=== PATIENT | female | born 1940 ===

== ENCOUNTER 2017-06-14 09:23 | Emergency (ER) | payer MEDICARE, OTHER ==
[2017-06-14 09:32] VITALS: BMI 25.8
[2017-06-14 09:33] VITALS: BP 159/75; PULSE 80; RESP 16; TEMP 98; O2SAT 98
--- NOTE | 2017-06-14 11:44 | C.PDOC ---
History Of Present Illness 77 yr old female with PMHx of arthritis, presents to the ER with complaints of right knee pain for the past 1 week. Patient reports she was seen by the arthritis doctor yesterday who prescribed a cream but reports no relief after 2 applications. Patient states she has a follow up appointment with the doctor again next week. Denies recent trauma, fever, leg pain, foot pain, back pain, weakness or numbness. Time Seen by Provider: 06/14/17 09:51 Chief Complaint (Nursing): Lower Extremity Problem/Injury History Per: Patient History/Exam Limitations: no limitations Onset/Duration Of Symptoms: Persistent (1 week) Current Symptoms Are (Timing): Still Present Past Medical History Reviewed: Historical Data, Nursing Documentation, Vital Signs Vital Signs: Last Vital Signs Temp 98.0 F 06/14/17 09:32 Pulse 80 06/14/17 09:32 Resp 16 06/14/17 09:32 BP 159/75 H 06/14/17 09:32 Pulse Ox 98 06/14/17 11:46 - Medical History PMH: HTN, Hypothyroidism Family History: States: No Known Family Hx - Social History Hx Alcohol Use: No Hx Substance Use: No - Immunization History Hx Tetanus Toxoid Vaccination: No Hx Influenza Vaccination: No Hx Pneumococcal Vaccination: No Review Of Systems Except As Marked, All Systems Reviewed And Found Negative. Constitutional: Negative for: Fever Musculoskeletal: Positive for: Other ((+) Right knee pain ). Negative for: Back Pain, Leg Pain, Foot Pain Neurological: Negative for: Weakness, Numbness Physical Exam - Physical Exam Appears: Non-toxic, No Acute Distress Skin: Warm, Dry, No Rash Head: Atraumatic, Normacephalic Oral Mucosa: Moist Extremity: Normal ROM, No Calf Tenderness, Capillary Refill (<2), Other ((+) Right Knee - Chronic arthritis changes. Crepitus. ) Pulses: Left Dorsalis Pedis: Normal, Right Dorsalis Pedis: Normal Neurological/Psych: Oriented x3, Normal Speech, Normal Motor ED Course And Treatment O2 Sat by Pulse Oximetry: 98 (RA ) Pulse Ox Interpretation: Normal Medical Decision Making Medical Decision Making: PLAN: * Motrin PO Disposition - Disposition Referrals: [facility] Francesca Crabtree, [Non-Staff] - Disposition: HOME/ ROUTINE Disposition Time: 10:00 Condition: GOOD Additional Instructions: Thank you for letting us take care of you today. Your provider was Dr. Carmichael. You were treated for chronic arthritis. The emergency medical care you received today was directed at your acute symptoms. If you were prescribed any medication, please fill it and take as directed. It may take several days for your symptoms to resolve. Return to the Emergency Department if your symptoms worsen, do not improve, or if you have any other problems. Please contact your doctor or call one of the physicians/clinics you have been referred to that are listed on the Patient Visit Information form that is included in your discharge packet. Bring any paperwork you were given at discharge with you along with any medications you are taking to your follow up visit. Our treatment cannot replace ongoing medical care by a primary care provider (PCP) outside of the emergency department. Thank you for allowing the [facility] team to be part of your care today. Follow up with your arthritis doctor as scheduled for follow up. Prescriptions: Ibuprofen [Motrin] 600 mg PO Q6 PRN #20 tab PRN Reason: Pain, Moderate (4-7) Instructions: Osteoarthritis (ED) Forms: Gen Discharge Inst Welsh, [employer] (Belarusian) Print Language: OMANI - Clinical Impression Clinical Impression: Arthritis - Scribe Statement The provider has reviewed the documentation as recorded by the Ana Cristinaibmanpreet Heller Provider Attestation: All medical record entries made by the Ana Cristinaibmanpreet were at my direction and personally dictated by me. I have reviewed the chart and agree that the record accurately reflects my personal performance of the history, physical exam, medical decision making, and the department course for this patient. I have also personally directed, reviewed, and agree with the discharge instructions and disposition.
== END 2017-06-14 10:07 | disposition home or self-care (01) ==
LOC: C.ER 09:23
DX: M17.11 Unilateral primary osteoarthritis, right knee (principal)

== ENCOUNTER 2017-07-16 14:03 | Emergency (ER) | payer MEDICARE, OTHER ==
[2017-07-16 14:04] VITALS: BMI 25.8
[2017-07-16 14:13] VITALS: RESP 18
[2017-07-16] MEDS ORDERED: Aspirin 325 mg EC Tablets PO STA (15:01)
[2017-07-16 15:21] LABS: BASO % 0.5 % (0.0-2.0); EOS % 0.6 % (0.0-4.0); HEMATOCRIT 36.8 % (34.0-47.0); LYMPH # 1.4 K/uL (1.0-4.3); LYMPH % 17.6 % (20.0-40.0); MEAN CELL VOLUME 81.5 fL (81.0-99.0); MEAN CORPUSCULAR HEMOGLOBIN 26.5 pg (27.0-31.0); MEAN CORPUSCULAR HGB CONC 32.5 g/dL (33.0-37.0); MEAN PLATELET VOLUME 11.3 fL (7.2-11.7); MONO # 0.3 K/uL (0.0-0.8); MONO % 3.2 % (0.0-10.0); RED CELL DISTRIBUTION WIDTH 14.3 % (11.5-14.5)
[2017-07-16] MEDS ORDERED: Aspirin 325 mg EC Tablets PO ONE (15:21)
[2017-07-16 15:32] LABS: CHLORIDE 96 mmol/L (98-107); SODIUM 135 mmol/L (132-148)
[2017-07-16 15:33] LABS: POTASSIUM 3.9 mmol/L (3.6-5.2)
[2017-07-16 15:35] LABS: ALB/GLOB RATIO 1.3 (1.0-2.1); ALKALINE PHOSPHATASE 133 U/L (38-126); ALT/SGPT 38 U/L (9-52); AST/SGOT 34 U/L (14-36); BILIRUBIN,TOTAL 0.7 mg/dL (0.2-1.3); BLOOD UREA NITROGEN 37 mg/dL (7-17); CARBON DIOXIDE 24 mmol/L (22-30); GFR AFRICAN-AMERICAN > 60; GLUCOSE,RANDOM 335 mg/dL (65-105); TOTAL PROTEIN 7.8 g/dL (6.3-8.3)
--- NOTE | 2017-07-16 15:54 | RAD ---
HISTORY: SOB COMPARISON: Chest x-ray performed 03/01/13 TECHNIQUE: Chest PA and lateral FINDINGS: LUNGS: No focal consolidation. Please note that chest x-ray has limited sensitivity for the detection of pulmonary masses. PLEURA: No significant pleural effusion identified. No definite pneumothorax . CARDIOVASCULAR: The cardiomediastinal silhouette appears within normal limits of size. OSSEOUS STRUCTURES: No acute osseous abnormality identified. VISUALIZED UPPER ABDOMEN: Right upper quadrant surgical clips. OTHER FINDINGS: None. IMPRESSION: No focal consolidation, significant pleural effusion, or definite pneumothorax identified.
--- NOTE | 2017-07-16 16:36 | C.PDOC ---
History Of Present Illness 77 y/o female c/o vague chest discomfort for 2 days. Patient reports pain is worse when standing at the kitchen sink or cooking. She notes pain is not digitally or positionally reproducible. Denies fever, chills, rash, palpitations , shortness of breath, nausea, vomiting, diarrhea, or other associated symptoms. Time Seen by Provider: 07/16/17 14:28 Chief Complaint (Nursing): Chest Pain History Per: Patient History/Exam Limitations: no limitations Onset/Duration Of Symptoms: Days Current Symptoms Are (Timing): Still Present Recent travel outside of the [place]: No Past Medical History Reviewed: Historical Data, Nursing Documentation, Vital Signs Vital Signs: Last Vital Signs Temp 98 F 07/16/17 17:03 Pulse 92 H 07/16/17 17:03 Resp 18 07/16/17 17:03 BP 127/70 07/16/17 17:03 Pulse Ox 97 07/16/17 17:03 - Medical History PMH: HTN, Hypothyroidism Family History: States: Unknown Family Hx - Social History Hx Alcohol Use: No Hx Substance Use: No - Immunization History Hx Tetanus Toxoid Vaccination: No Hx Influenza Vaccination: No Hx Pneumococcal Vaccination: No Review Of Systems Except As Marked, All Systems Reviewed And Found Negative. Constitutional: Negative for: Fever, Chills Respiratory: Negative for: Cough, Shortness of Breath, Wheezing Gastrointestinal: Negative for: Nausea, Vomiting, Abdominal Pain Musculoskeletal: Positive for: Other (chest wall pain) Skin: Negative for: Rash Neurological: Negative for: Headache, Dizziness Physical Exam - Physical Exam Appears: Non-toxic, No Acute Distress Skin: Normal Color, Warm, Dry, No Rash Head: Atraumatic, Normacephalic Oral Mucosa: Moist Chest: Symmetrical, No Tenderness (no digitally reproducible pain ) Cardiovascular: Rhythm Regular Respiratory: Normal Breath Sounds, No Accessory Muscle Use, No Rales, No Rhonchi , No Wheezing Gastrointestinal/Abdominal: Soft, No Tenderness, No Guarding, No Rebound Back: Normal Inspection Extremity: Normal ROM, Capillary Refill (< 2 sec.) Neurological/Psych: Oriented x3, Normal Speech, Normal Cognition ED Course And Treatment - Laboratory Results Result Diagrams: 07/16/17 15:17 07/16/17 15:17 Lab Interpretation: Abnormal (UA 144 WBC's) ECG: Interpreted By Me ECG Rhythm: Sinus Tachycardia ECG Interpretation: Abnormal Rate From EC O2 Sat by Pulse Oximetry: 98 (RA) Pulse Ox Interpretation: Normal - Radiology CXR: Interpreted by Me CXR Interpretation: Yes: No Acute Disease Progress Note: EKG, CxR, aspirin 325 PO, labs ordered. macrobid PO Reevaluation Time: 17:17 Reassessment Condition: Improved Medical Decision Making Medical Decision Making: w/u neg for cardiac issues vague discomforts probably from UTI, macrobid started. Disposition Doctor Will See Patient In The: Office Counseled Patient/Family Regarding: Studies Performed, Diagnosis - Disposition Disposition: HOME/ ROUTINE Disposition Time: 17:20 Condition: GOOD Forms: [facility] (Albanian) - Clinical Impression Clinical Impression: Chest discomfort, UTI (urinary tract infection) - Scribe Statement The provider has reviewed the documentation as recorded by the Scribe Raymond Sutton All medical record entries made by the Scribe were at my direction and personally dictated by me. I have reviewed the chart and agree that the record accurately reflects my personal performance of the history, physical exam, medical decision making, and the department course for this patient. I have also personally directed, reviewed, and agree with the discharge instructions and disposition.
[2017-07-16] MEDS ORDERED: (Novolin R) Insulin Human Regular 100 units/ml vial IV STA (16:45)
[2017-07-16 16:53] LABS: RBC URINE 62 /hpf (0-3); TRANSITIONAL EPITHIAL 1 /hpf (0-3); URINE BACTERIA MANY (<OCC); URINE BILIRUBIN NEGATIVE (NEGATIVE); URINE COLOR Amber (YELLOW); URINE GLUCOSE (UA) 3+ mg/dL (Normal); URINE KETONE NEGATIVE (NEGATIVE); URINE LEUKOCYTE ESTERASE 3+ Leu/uL (Negative); URINE PROTEIN NEGATIVE (NEGATIVE); URINE UROBILINOGEN NORMAL mg/dL (0.2-1.0); WBC URINE 144 /hpf (0-5)
[2017-07-16 16:54] LABS: URINE BLOOD 3+ (NEGATIVE)
[2017-07-16] MEDS ORDERED: (Novolin R) Insulin Human Regular 100 units/ml vial ONE (16:57)
[2017-07-16 17:04] VITALS: BP 127/70; PULSE 92; TEMP 98
[2017-07-16 17:19] VITALS: O2SAT 98
--- NOTE | 2017-07-18 18:19 | CARD ---
APPROVED REPORT EKG Measurement Heart [id number] <Conclusion> Sinus tachycardia with occasional premature ventricular complexes Left ventricular hypertrophy with repolarization abnormality Abnormal ECG
== END 2017-07-16 17:40 | disposition home or self-care (01) ==
LOC: C.ER 14:03
DX: R07.89 Other chest pain (principal); N39.0 Urinary tract infection, site not specified

== ENCOUNTER 2018-12-17 15:32 | Observation (INO) | payer MEDICARE, OTHER ==
[2018-12-17 15:32] VITALS: BMI 25.8
--- NOTE | 2018-12-17 16:05 | C.PDOC ---
History Of Present Illness 78 y/o female, w/PMhx of IDDM, presents to ER with family for evaluation of weakness and lightheadedness which has been present for the past few days. Family states that they found her on the floor yesterday. Patient states that she did not pass out. Patient reports that her blood sugar was 46 at the time. She notes that she takes her oral and insulin medications as prescribed. She states that her blood sugar levels are usually around 125. Currently, patient denies having dizziness, CP, SOB, palpitations, fever, chills, bowel/ bladder incontinence, dysuria, and hematuria. Time Seen by Provider: 12/17/18 15:46 Chief Complaint (Nursing): Dizziness/Lightheaded History Per: Patient History/Exam Limitations: no limitations Onset/Duration Of Symptoms: Days Current Symptoms Are (Timing): Still Present Severity: Moderate Past Medical History Reviewed: Historical Data, Nursing Documentation, Vital Signs Vital Signs: Last Vital Signs Temp 98.7 F 12/17/18 15:37 Pulse 88 12/17/18 15:37 Resp 18 12/17/18 15:37 BP 178/73 H 12/17/18 15:37 Pulse Ox 98 12/17/18 15:37 - Medical History PMH: Arthritis, Diabetes, HTN, Hypothyroidism Other Surgeries: Hx of surgeries Family History: States: No Known Family Hx - Social History Hx Alcohol Use: No Hx Substance Use: No - Immunization History Hx Tetanus Toxoid Vaccination: No Hx Influenza Vaccination: No Hx Pneumococcal Vaccination: No Review Of Systems Constitutional: Positive for: Weakness. Negative for: Fever, Chills Cardiovascular: Negative for: Chest Pain, Palpitations Respiratory: Negative for: Shortness of Breath Gastrointestinal: Negative for: Nausea, Vomiting Genitourinary: Negative for: Dysuria, Incontinence, Hematuria Neurological: Negative for: Headache, Dizziness Physical Exam - Physical Exam Appears: Non-toxic, No Acute Distress Skin: Normal Color, Warm, Dry Head: Atraumatic, Normacephalic Eye(s): bilateral: Normal Inspection, PERRL, EOMI Nose: Normal Oral Mucosa: Moist Neck: Supple Chest: Symmetrical Cardiovascular: Rhythm Regular Respiratory: Normal Breath Sounds, No Rales, No Rhonchi, No Wheezing Gastrointestinal/Abdominal: Normal Exam, Soft, No Tenderness, No Guarding, No Rebound Neurological/Psych: Oriented x3, Normal Speech ED Course And Treatment - Laboratory Results Result Diagrams: 12/17/18 16:20 12/17/18 16:20 Lab Interpretation: Abnormal (Low glucose) ECG: Interpreted By Me ECG Rhythm: Sinus Rhythm ECG Interpretation: Normal O2 Sat by Pulse Oximetry: 98 (RA) Pulse Ox Interpretation: Normal Reevaluation Time: 19:08 Reassessment Condition: Unchanged (Glucose remains low despite being given food and juice.) - Physician Consult Information Time Consulting Physician Contacted: 19:08 Physician Contacted: Jordin Jackson Outcome Of Conversation: He knows the patient well and will admit for glucose management. Medical Decision Making Medical Decision Making: Plan: --Labs --UA --ECG --Glucose,POC Updates: Patient's blood sugar level is 55 in the ER. Disposition - Disposition Disposition: HOSPITALIZED Disposition Time: 19:09 Condition: FAIR - POA Present On Arrival: Poor Glycemic Control - Clinical Impression Clinical Impression: Hypoglycemia associated with diabetes - Scribe Statement The provider has reviewed the documentation as recorded by the Tami Conroy Provider Attestation: All medical record entries made by the Tami were at my direction and personally dictated by me. I have reviewed the chart and agree that the record accurately reflects my personal performance of the history, physical exam, medical decision making, and the department course for this patient. I have also personally directed, reviewed, and agree with the discharge instructions and disposition.
[2018-12-17 16:24] LABS: BASO % 0.4 % (0.0-2.0); EOS # 0.1 K/uL (0.0-0.7); EOS % 1.1 % (0.0-4.0); HEMOGLOBIN 10.9 g/dL (11.0-16.0); LYMPH # 1.2 K/uL (1.0-4.3); LYMPH % 15.2 % (20.0-40.0); MEAN CELL VOLUME 81.9 fL (81.0-99.0); MEAN CORPUSCULAR HEMOGLOBIN 25.7 pg (27.0-31.0); MEAN CORPUSCULAR HGB CONC 31.3 g/dL (33.0-37.0); MEAN PLATELET VOLUME 9.3 fL (7.2-11.7); MONO # 0.4 K/uL (0.0-0.8); MONO % 5.7 % (0.0-10.0); NEUT % 77.6 % (50.0-75.0); RBC 4.23 Mil/uL (3.80-5.20); RED CELL DISTRIBUTION WIDTH 15.8 % (11.5-14.5); WHITE BLOOD COUNT 7.7 K/uL (4.8-10.8)
[2018-12-17 16:35] LABS: ALB/GLOB RATIO 1.2 (1.0-2.1); ALBUMIN 4.3 g/dL (3.5-5.0); ALT/SGPT 10 U/L (9-52); AST/SGOT 26 U/L (14-36); BLOOD UREA NITROGEN 15 mg/dL (7-17); CALCIUM 9.4 mg/dl (8.6-10.4); GFR NON-AFRICAN AMERICAN > 60
[2018-12-17 18:08] LABS: SQUAMOUS EPITHIAL 25 /hpf (0-5); URINE BACTERIA MOD (<OCC); URINE BILIRUBIN NEGATIVE (NEGATIVE); URINE BLOOD NEGATIVE (NEGATIVE); URINE CLARITY Hazy (Clear); URINE COLOR Yellow (YELLOW); URINE GLUCOSE (UA) NORMAL (Normal); URINE LEUKOCYTE ESTERASE 3+ Leu/uL (Negative); URINE PROTEIN NEGATIVE (NEGATIVE); URINE UROBILINOGEN NORMAL mg/dL (0.2-1.0)
[2018-12-17] MEDS ORDERED: Dextrose 50% SYRINGE Inj (50 ml) IV STA (19:10)
[2018-12-17] MEDS ORDERED: Dextrose 50% SYRINGE Inj (50 ml) ONE (19:20)
--- NOTE | 2018-12-17 22:13 | CP.PCM.HP ---
History of Present Illness - History of Present Illness History of Present Illness: Patient now having some control of his had . Came to the office to get a refill of the her medications. Also she ran out of the insulin needles. Patient is taking insulin both Lantus, and Humalog. Also being seen by qa tech. She scheduled to see in 2 months. Patient now having increasing lower back pain. Also complaining of pain radiating to the front of the Abdomen. No chest pain noted. Blood sugar is still on the high side. Recent blood test is showing hemoglobin A1 C9.2. No chest pain or shortness of breath. History: 76-year-old female with history of diabetes, hypertension, hypercholesteremia came to the office for a routine visit. On examination: HEENT PERRLA, neck supple No thyromegaly was noted and no cervical adenopathy noted Chest bilateral good air entry, no wheezing or rales noted CVS regular heart sound, no murmur Abdomen soft and no organomegaly Extremities no pedal edema, no leg swelling, pedal pulses are good. SUPPORT WORKER alert awake oriented x3 no functional neurological deficit. Lumbosacral spine x-ray reviewed Knee x-rays reviewed Changes of osteoarthritis noted. B-12 1,000 MCG TABLET Start: Nov 26, 2018 End: Feb 23, 2019 FOLIC ACID 1 MG TABLET Start: Nov 26, 2018 End: May 22, 2019 LOSARTAN-HYDROCHLOROTHIAZIDE 50-12.5 MG TAB Start: Aug 26, 2018 End: May 22, 2019 GLIMEPIRIDE 4 MG TABLET Start: Aug 26, 2018 End: May 22, 2019 HUMALOG MIX 75-25 KWIKPEN Start: Oct 15, 2018 End: Jul 11, 2019 DICLOFENAC SODIUM 3% GEL Start: March 12, 2018 End: Dec 06, 2018 PROMETHAZINE VC SYRUP PEN NEEDLE 6MM 31G Start: Nov 26, 2018 End: March 25, 2019 EQL 33G LANCETS Start: Oct 15, 2018 End: Feb 11, 2019 ACCU-CHEK RAVI TEST STRIPS Start: Oct 15, 2018 End: March 13, 2019 SYNTHROID 25 MCG TABLET Start: Aug 26, 2018 End: May 22, 2019 Assessment and recommendation: 76-year-old female with history of diabetes, hypertension, hypercholesteremia came to the office of the right foot pain. Uncontrolled diabetes. I advised the homemaker and the patient that she should increase the insulin to 25 units Lantus at night. Humalog 25 in the morning 25 in the evening. I advised her to continue current medications. Patient will do the repeat blood test today. Followup in 6 weeks Past Patient History - Past Social History Smoking Status: Never Smoked - CARDIAC Hx Hypertension: Yes - ENDOCRINE/METABOLIC Hx Hypothyroidism: Yes - MUSCULOSKELETAL/RHEUMATOLOGICAL Hx Arthritis: Yes - PSYCHIATRIC Hx Substance Use: No - SURGICAL HISTORY Hx Surgeries: Yes Other/Comment: Lithotrypsy - ANESTHESIA Hx Anesthesia: No Hx Anesthesia Reactions: No Meds Allergies/Adverse Reactions: Allergies Allergy/AdvReac Type Severity Reaction Status Date / Time No Known Allergies Allergy Verified 07/16/17 14:19 Results - Vital Signs Recent Vital Signs: Last Vital Signs Temp 98.7 F 12/17/18 15:37 Pulse 79 12/17/18 19:28 Resp 20 12/17/18 19:28 BP 130/65 12/17/18 19:28 Pulse Ox 96 12/17/18 19:28 - Labs Result Diagrams: 12/19/18 07:00 12/19/18 07:00 Labs: Laboratory Results - last 24 hr 12/17/18 12/17/18 12/17/18 15:36 16:15 16:18 WBC RBC Hgb Hct MCV MCH MCHC RDW Plt Count MPV Neut % (Auto) Lymph % (Auto) Bledsoe % (Auto) Eos % (Auto) Baso % (Auto) Neut # (Auto) Lymph # (Auto) Bledsoe # (Auto) Eos # (Auto) Baso # (Auto) Sodium Potassium Chloride Carbon Dioxide Anion Gap BUN Creatinine Est GFR ( Amer) Est GFR (Non-Af Amer) POC Glucose (mg/dL) 65 56 L 55 L Random Glucose Calcium Total Bilirubin AST ALT Alkaline Phosphatase Total Protein Albumin Globulin Albumin/Globulin Ratio Urine Color Urine Clarity Urine pH Ur Specific [place] Urine Protein Urine Glucose (UA) Urine Ketones Urine Blood Urine Nitrate Urine Bilirubin Urine Urobilinogen Ur Leukocyte Esterase Urine WBC (Auto) Urine RBC (Auto) Ur Squamous Epith Cells Urine Bacteria 12/17/18 12/17/18 12/17/18 16:20 16:20 17:50 WBC 7.7 RBC 4.23 Hgb 10.9 L Hct 34.6 MCV 81.9 MCH 25.7 L MCHC 31.3 L RDW 15.8 H Plt Count 236 MPV 9.3 Neut % (Auto) 77.6 H Lymph % (Auto) 15.2 L Bledsoe % (Auto) 5.7 Eos % (Auto) 1.1 Baso % (Auto) 0.4 Neut # (Auto) 6.0 Lymph # (Auto) 1.2 Bledsoe # (Auto) 0.4 Eos # (Auto) 0.1 Baso # (Auto) 0.0 Sodium 139 Potassium 3.9 Chloride 104 Carbon Dioxide 27 Anion Gap 12 BUN 15 Creatinine 0.7 Est GFR ( Amer) > 60 Est GFR (Non-Af Amer) > 60 POC Glucose (mg/dL) Random Glucose 64 L D Calcium 9.4 Total Bilirubin 0.4 AST 26 ALT 10 Alkaline Phosphatase 93 Total Protein 7.7 Albumin 4.3 Globulin 3.5 Albumin/Globulin Ratio 1.2 Urine Color Yellow Urine Clarity Hazy Urine pH 5.0 Ur Specific [place] 1.012 Urine Protein Negative Urine Glucose (UA) Normal Urine Ketones Negative Urine Blood Negative Urine Nitrate Negative Urine Bilirubin Negative Urine Urobilinogen Normal Ur Leukocyte Esterase 3+ H Urine WBC (Auto) 15 H Urine RBC (Auto) 4 H Ur Squamous Epith Cells 25 H Urine Bacteria Mod H 12/17/18 12/17/18 12/17/18 19:00 19:02 19:48 WBC RBC Hgb Hct MCV MCH MCHC RDW Plt Count MPV Neut % (Auto) Lymph % (Auto) Bledsoe % (Auto) Eos % (Auto) Baso % (Auto) Neut # (Auto) Lymph # (Auto) Bledsoe # (Auto) Eos # (Auto) Baso # (Auto) Sodium Potassium Chloride Carbon Dioxide Anion Gap BUN Creatinine Est GFR ( Amer) Est GFR (Non-Af Amer) POC Glucose (mg/dL) 40 L 36 L* 239 H Random Glucose Calcium Total Bilirubin AST ALT Alkaline Phosphatase Total Protein Albumin Globulin Albumin/Globulin Ratio Urine Color Urine Clarity Urine pH Ur Specific [place] Urine Protein Urine Glucose (UA) Urine Ketones Urine Blood Urine Nitrate Urine Bilirubin Urine Urobilinogen Ur Leukocyte Esterase Urine WBC (Auto) Urine RBC (Auto) Ur Squamous Epith Cells Urine Bacteria
[2018-12-18 01:55] VITALS: RESP 20
[2018-12-18] MEDS: Levothyroxine 50 MCG TAB PO SCH (06:22)
[2018-12-18] MEDS ORDERED: Dextrose 5%/0.45% NS 1,000 ML IV SCH (11:15)
--- NOTE | 2018-12-18 12:21 | CARD ---
APPROVED REPORT Date of service: 12/17/2018 EKG Measurement Heart [id number] <Conclusion> Normal sinus rhythm Normal ECG
[2018-12-19] MEDS: Levothyroxine 50 MCG TAB PO SCH (06:37)
[2018-12-19 07:15] LABS: BASO % 0.6 % (0.0-2.0); EOS # 0.2 K/uL (0.0-0.7); HEMOGLOBIN 10.4 g/dL (11.0-16.0); LYMPH # 1.7 K/uL (1.0-4.3); LYMPH % 24.9 % (20.0-40.0); MEAN CELL VOLUME 80.9 fL (81.0-99.0); MEAN CORPUSCULAR HEMOGLOBIN 26.2 pg (27.0-31.0); MEAN CORPUSCULAR HGB CONC 32.4 g/dL (33.0-37.0); MEAN PLATELET VOLUME 9.7 fL (7.2-11.7); MONO # 0.5 K/uL (0.0-0.8); MONO % 7.2 % (0.0-10.0); NEUT # 4.4 K/uL (1.8-7.0); NEUT % 64.3 % (50.0-75.0); NRBC % 0.1 % (0.0-2.0); RBC 3.97 Mil/uL (3.80-5.20); RED CELL DISTRIBUTION WIDTH 15.7 % (11.5-14.5); WHITE BLOOD COUNT 6.9 K/uL (4.8-10.8)
[2018-12-19 07:39] LABS: ALB/GLOB RATIO 1.2 (1.0-2.1); ALBUMIN 3.6 g/dL (3.5-5.0); ALT/SGPT 10 U/L (9-52); AST/SGOT 18 U/L (14-36); BLOOD UREA NITROGEN 12 mg/dL (7-17); CALCIUM 9.1 mg/dl (8.6-10.4); GFR NON-AFRICAN AMERICAN > 60; HDL CHOLESTEROL 36 mg/dL (30-70)
[2018-12-19 07:49] LABS: LDL CHOLESTEROL 84 mg/dL (0-129)
--- NOTE | 2018-12-19 08:48 | CP.PCM.DIS ---
Provider - Provider Date of Admission: 12/17/18 19:06 Attending physician: Jordin Jackson MD Hospital Course - Lab Results Lab Results: Micro Results 12/17/18 19:26 Urine,Clean Catch Urine Culture - Final 10-50,000 CFU/ML. MULTIPLE SPECIES. PROBABLE CONTAMINATION. Most Recent Lab Values WBC 6.9 K/uL (4.8-10.8) 12/19/18 07:00 RBC 3.97 Mil/uL (3.80-5.20) 12/19/18 07:00 Hgb 10.4 g/dL (11.0-16.0) L 12/19/18 07:00 Hct 32.1 % (34.0-47.0) L 12/19/18 07:00 MCV 80.9 fL (81.0-99.0) L 12/19/18 07:00 MCH 26.2 pg (27.0-31.0) L 12/19/18 07:00 MCHC 32.4 g/dL (33.0-37.0) L 12/19/18 07:00 RDW 15.7 % (11.5-14.5) H 12/19/18 07:00 Plt Count 234 K/uL (130-400) 12/19/18 07:00 MPV 9.7 fL (7.2-11.7) 12/19/18 07:00 Neut % (Auto) 64.3 % (50.0-75.0) 12/19/18 07:00 Lymph % (Auto) 24.9 % (20.0-40.0) 12/19/18 07:00 Tucker % (Auto) 7.2 % (0.0-10.0) 12/19/18 07:00 Eos % (Auto) 3.0 % (0.0-4.0) 12/19/18 07:00 Baso % (Auto) 0.6 % (0.0-2.0) 12/19/18 07:00 Neut # (Auto) 4.4 K/uL (1.8-7.0) 12/19/18 07:00 Lymph # (Auto) 1.7 K/uL (1.0-4.3) 12/19/18 07:00 Tucker # (Auto) 0.5 K/uL (0.0-0.8) 12/19/18 07:00 Eos # (Auto) 0.2 K/uL (0.0-0.7) 12/19/18 07:00 Baso # (Auto) 0.0 K/uL (0.0-0.2) 12/19/18 07:00 Sodium 140 mmol/L (132-148) 12/19/18 07:00 Potassium 4.3 mmol/L (3.6-5.2) 12/19/18 07:00 Chloride 106 mmol/L (98-107) 12/19/18 07:00 Carbon Dioxide 29 mmol/L (22-30) 12/19/18 07:00 Anion Gap 10 (10-20) 12/19/18 07:00 BUN 12 mg/dL (7-17) 12/19/18 07:00 Creatinine 0.7 mg/dL (0.7-1.2) 12/19/18 07:00 Est GFR ( Amer) > 60 12/19/18 07:00 Est GFR (Non-Af Amer) > 60 12/19/18 07:00 POC Glucose (mg/dL) 140 mg/dL (65-110) H 12/19/18 07:26 Random Glucose 129 mg/dL (65-105) H D 12/19/18 07:00 Hemoglobin A1c 7.2 % (4.2-6.5) H 12/19/18 07:00 Calcium 9.1 mg/dl (8.6-10.4) 12/19/18 07:00 Phosphorus 2.9 mg/dL (2.5-4.5) 12/19/18 07:00 Magnesium 1.8 mg/dL (1.6-2.3) 12/19/18 07:00 Total Bilirubin 0.4 mg/dL (0.2-1.3) 12/19/18 07:00 AST 18 U/L (14-36) 12/19/18 07:00 ALT 10 U/L (9-52) 12/19/18 07:00 Alkaline Phosphatase 80 U/L (38-126) 12/19/18 07:00 Total Protein 6.6 g/dL (6.3-8.3) 12/19/18 07:00 Albumin 3.6 g/dL (3.5-5.0) 12/19/18 07:00 Globulin 3.0 gm/dL (2.2-3.9) 12/19/18 07:00 Albumin/Globulin Ratio 1.2 (1.0-2.1) 12/19/18 07:00 Triglycerides 135 mg/dL (0-149) 12/19/18 07:00 Cholesterol 144 mg/dL (0-199) 12/19/18 07:00 LDL Cholesterol Direct 84 mg/dL (0-129) 12/19/18 07:00 HDL Cholesterol 36 mg/dL (30-70) 12/19/18 07:00 TSH 3rd Generation 2.61 mIU/L (0.46-4.68) 12/19/18 07:00 Urine Color Yellow (YELLOW) 12/17/18 17:50 Urine Clarity Hazy (Clear) 12/17/18 17:50 Urine pH 5.0 (5.0-8.0) 12/17/18 17:50 Ur Specific [place] 1.012 (1.003-1.030) 12/17/18 17:50 Urine Protein Negative mg/dL (NEGATIVE) 12/17/18 17:50 Urine Glucose (UA) Normal mg/dL (Normal) 12/17/18 17:50 Urine Ketones Negative mg/dL (NEGATIVE) 12/17/18 17:50 Urine Blood Negative (NEGATIVE) 12/17/18 17:50 Urine Nitrate Negative (NEGATIVE) 12/17/18 17:50 Urine Bilirubin Negative (NEGATIVE) 12/17/18 17:50 Urine Urobilinogen Normal mg/dL (0.2-1.0) 12/17/18 17:50 Ur Leukocyte Esterase 3+ Priya/uL (Negative) H 12/17/18 17:50 Urine WBC (Auto) 15 /hpf (0-5) H 12/17/18 17:50 Urine RBC (Auto) 4 /hpf (0-3) H 12/17/18 17:50 Ur Squamous Epith Cells 25 /hpf (0-5) H 12/17/18 17:50 Urine Bacteria Mod (<OCC) H 12/17/18 17:50 Discharge Plan - Follow Up Plan Condition: FAIR Disposition: HOME/ ROUTINE
--- NOTE | 2018-12-19 08:48 | CP.PCM.PN ---
Subjective - Date & Time of Evaluation Date of Evaluation: 12/18/18 Objective - Vital Signs/Intake and Output Vital Signs (last 24 hours): Temp Pulse Resp BP Pulse Ox 98.2 F 62 20 136/63 99 12/18/18 23:25 12/18/18 23:25 12/18/18 23:25 12/18/18 23:25 12/19/18 04:00 Intake and Output: 12/19/18 12/19/18 06:59 18:59 Intake Total 740 300 Balance 740 300 - Medications Medications: Current Medications Folic Acid (Folic Acid) 1 mg PO DAILY [facility] Last Admin: 12/18/18 10:12 Dose: 1 mg Heparin Sodium (Porcine) (Heparin) 5,000 units SC Q12 [facility] Last Admin: 12/18/18 21:33 Dose: 5,000 units Levothyroxine Sodium (Synthroid) 50 mcg PO DAILY@0630 [facility] Last Admin: 12/19/18 06:37 Dose: 50 mcg - Labs Labs: 12/19/18 07:00 12/19/18 07:00
[2018-12-19 16:06] VITALS: BP 152/67; PULSE 69; TEMP 98.1; O2SAT 94
== END 2018-12-19 19:08 | disposition home or self-care (01) ==
LOC: C.ER 15:32 → C.9E 19:06 → C.3T 12-18 00:14
PROVIDERS: ADMIT Internal Medicine; ATTEND Internal Medicine
DX: E11.649 Type 2 diabetes mellitus with hypoglycemia without coma (principal); E03.9 Hypothyroidism, unspecified; I10 Essential (primary) hypertension; E78.00 Pure hypercholesterolemia, unspecified; M19.90 Unspecified osteoarthritis, unspecified site
CPT/HCPCS: 36415; 80053; 80061; 81001; 82948; 83036; 83525; 83735; 84100; 84443; 85025; 87086; 93005; 96372; 97116; 97161; 99285; G0378; G8978; G8979; J1644; J7042